=== PATIENT | female | born 1985 | race Caucasian/White ===

== ENCOUNTER 2019-10-15 02:07 | Emergency (ER) | payer OTHER ==
[~2019-10-15] VITALS: Ht 162.6 cm; Wt 68.0 kg
[2019-10-15 02:20] VITALS: BP 113/71
[2019-10-15 02:50] LABS: INFLUENZA A PATIENT NEGATIVE (NEGATIVE); INFLUENZA B PATIENT POSITIVE (NEGATIVE)
[2019-10-15] MEDS ORDERED: OSEL75CA PO (03:00)
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
[2019-10-15] MEDS: OSELTAMIVIR 75 MG CAPSULE PO ONE (03:03)
== END 2019-10-15 03:05 | disposition home or self-care (01) ==
LOC: ER 02:07
DX: J10.1 Influenza due to other identified influenza virus with other respiratory manifestations (principal)
CPT/HCPCS: 87804; 99284